=== PATIENT | female | born 1985 | race Caucasian/White ===

== ENCOUNTER 2019-06-06 17:43 | Inpatient (IN) | payer MEDICAID, SELFPAY ==
[2019-06-06 17:49] VITALS: BMI 48.5
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
[2019-06-06 19:26] LABS: Basophils % 0.3 %; Eosinophils % 0.1 %; Hematocrit 35.4 % (37.0-47.0); Hemoglobin 11.8 g/dL (11.5-15.3); Lymphocytes # 4.7 10^3/uL (0.8-4.8); Lymphocytes % 48.1 %; Mean Corpuscular HGB Conc 33.3 g/dL (30.0-36.0); Mean Corpuscular Volume 90.1 fL (81-99); Monocytes # 0.7 10^3/uL (0.2-0.9); Monocytes % 7.2 %; Neutrophils # 4.2 10^3/uL (1.8-7.7); Nucleated Red Blood Cells % 0 %; Platelet Count 268 10^3/cmm (130-400); Red Blood Count 3.93 10^6/uL (4.1-5.3); Red Cell Distribution Width 11.9 % (12.1-15.1); White Blood Count 9.7 10^3/uL (4.0-10.0)
[2019-06-06 19:40] LABS: Alanine Aminotransferase 7 U/L (0-33); Albumin Level 2.9 g/dL (3.5-5.2); Alkaline Phosphatase 44 IU/L (35-105); Anion Gap 16.4 (5-19); Aspartate Amino Transferase 9 U/L (0-32); Blood Urea Nitrogen 12 mg/dL (6-20); Calcium 9.4 mg/dL (8.5-10.5); Carbon Dioxide 25 mmol/L (22-29); Chloride 96 mmol/L (98-107); Globulin 3.7 g/dL (1.3-4.6); Glomerular Filtration Rate 72.6 mL/min (90-130); Glucose 119 mg/dL (74-109); Potassium 3.4 mmol/L (3.5-5.1); Sodium 134 mmol/L (136-145); Total Bilirubin 0.2 mg/dL (0.15-1.2); Total Protein 6.6 g/dL (6.6-8.7)
[2019-06-06 19:50] LABS: Acetaminophen < 5.0 ug/mL (10-30); Alcohol Level < 10 mg/dL (0-10); Salicylate < 0.3 mg/dL (3-10)
[2019-06-06 19:50] LABS: Add Urine Microscopic? NO
[2019-06-06 19:57] VITALS: BP 128/85; PULSE 100; RESP 18; TEMP 36.7; O2SAT 97
[2019-06-06 20:12] LABS: Blood Urine Neg (Negative); Glucose Urine UA Norm (Normal); HCG Qualitative Urine. Negative (Negative); Ketones Urine Negative (Negative); Protein Urine Neg (Negative); Urine Appearance Clear (CLEAR); Urine Color Yellow (Yellow); pH Urine 6 (5-7)
[2019-06-06 20:13] LABS: Bilirubin Urine Neg (NEGATIVE); Leukocyte Esterase Urine Negative (Negative); Nitrate Urine Negative (Negative); Urobilinogen Urine Norm (Negative)
[2019-06-06 20:24] LABS: Amphetamines Screen Urine Negative (Negative); Barbiturates Screen Urine Negative (Negative); Benzodiazepines Screen Urine Negative (Negative); Cocaine Screen Urine Negative (Negative); Opiate Screen Urine Negative (Negative); PCP Screen Urine Negative (Negative); THC Screen Urine Negative (Negative)
[2019-06-06 21:46] VITALS: BP 128/85; PULSE 100; RESP 18; TEMP 36.7; O2SAT 97
[2019-06-06 22:19] VITALS: BP 119/85; PULSE 105; RESP 22; TEMP 37.3; O2SAT 98
[2019-06-06] MEDS: trazodone 50 mg Tablet PO (22:31)
[2019-06-07 06:00] VITALS: BP 120/76; PULSE 82; RESP 20; TEMP 36.4; O2SAT 97
[2019-06-07 13:33] VITALS: BP 96/66; PULSE 88; RESP 20; TEMP 36.8; O2SAT 97
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
[2019-06-07 20:28] VITALS: BP 115/52; PULSE 68; RESP 19; TEMP 36.8; O2SAT 97
[2019-06-07] MEDS: trazodone 50 mg Tablet PO (20:31)
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
[2019-06-08 06:00] VITALS: BP 102/58; PULSE 92; RESP 19; TEMP 36.8; O2SAT 95
[2019-06-08 14:00] VITALS: RESP 18
--- NOTE | 2019-06-08 14:24 | PC.SOCIAL ---
message has been left in regards to talking to nurse Beckie Elizalde [phone] contact for [facility]
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
[2019-06-08 16:38] VITALS: BP 102/58; PULSE 92; RESP 18; TEMP 36.8; O2SAT 95
== END 2019-06-08 16:57 | disposition home or self-care (01) | DRG 883 ==
LOC: ER 21:11 → NP 06-07 11:32
PROVIDERS: Emergency Provider Family Medicine; Family Provider Family Medicine; PCP Family Medicine; Visit Provider Psychiatry & Neurology Psychiatry
DX: F63.81 Intermittent explosive disorder (principal); R45.851 Suicidal ideations; F79 Unspecified intellectual disabilities
CPT/HCPCS: 12345; 36415; 80053; 80307; 81003; 81025; 85025; 99284; A9270

== ENCOUNTER 2019-06-06 17:43 | Emergency (ER) | payer MEDICAID, SELFPAY | END 2019-06-06 22:00 | disposition admitted as inpatient to this hospital (09) | LOC: ER 06-28 07:08 | PROVIDERS: Emergency Provider Family Medicine; Family Provider Family Medicine; PCP Family Medicine | DX: F31.9 Bipolar disorder, unspecified (principal) | CPT/HCPCS: 36415; 80053; 80307; 81003; 81025; 85025; 99284; 99285 ==

== ENCOUNTER → 2019-07-13 07:40 | Outpatient (BNVA) | payer MEDICAID, SELFPAY | PROVIDERS: Family Provider Family Medicine; PCP Family Medicine; Visit Provider Nurse Practitioner | DX: F31.81 Bipolar II disorder (principal); F70 Mild intellectual disabilities | CPT/HCPCS: 99213 ==

== ENCOUNTER 2019-07-31 05:45 | Outpatient (CLI) | payer MEDICAID, SELFPAY ==
[2019-07-31 06:13] VITALS: BMI 47.6
--- NOTE | 2019-07-31 06:23 | ECG_ITS ---
NAME OF STUDY: LEXISCAN SESTAMIBI STRESS TEST INDICATION: Abnormal EKG PROCEDURE: At the baseline, the EKG revealed normal sinus rhythm with diffuse nonspecific T wave changes in the anterolateral leads. The baseline blood pressure was 117/71 mm Hg with a heart rate of 74 beats/min. Lexiscan was infused over a period of 20 seconds. A total of 0.4 milligrams of Lexiscan was infused. The stress phase was continued for a total of 5 minutes. Heart rate at the end of the stress phase was 86 with a blood pressure 130/59. The EKG at the peak infusion revealed no significant changes. Sestamibi was injected 20 seconds after the Lexiscan infusion. Blood pressure at the end of the recovery phase was 130/59 with a heart rate of 86 per minute. CONCLUSION: 1. No significant EKG changes with the LexiScan infusion 2. No LexiScan induced chest pain or cardiac arrhythmia 3. Normal blood pressure and heart rate response 4. Sestamibi/sestamibi perfusion scan pending; see separate report. Electronically Signed On 08-15-2019 12:40:35 CDT by Lilli Cardona M.D. [id number]
--- NOTE | 2019-07-31 06:23 | NMCV_ITS ---
NM trena perf SPECT r/s* [id number] Ericka Allen Age: 33 Gender: F : 1985 Exam Date: 07/31/2019 07:47 Ordering Phys: Lilli Cardona MD ([email or web address]) Technologist: XIOMY Sal Exam Location: [facility] Indications: ABNORMAL EKG STRESS TEST Please [facility] for [facility] IMAGE PROTOCOL Rest/Stress 1 Lexiscan Day Radiopharmaceutical Dose (mCi) Administration Site Administered by Rest: Tc-99m 10.7 IV XIOMY Jacinto Sestamibi Stress:Tc-99m 33.0 IV XIOMY Sal Sestamiveronica Rest: 31-Jul-2019 60 Discovery 630 Stress: 31-Jul-2019 30 Discovery 630 0.4mg Lexiscan. Images obtained in supine and prone position. SPECT RESULTS Technical Quality: Excellent Raw Data Analysis: Breast attenuation Image Corrections: No attenuation or motion correction applied Summed Stress Score: 0 Summed Rest Score: 0 Summed Difference Score: 0 PERFUSION FINDINGS Fairly uniform myocardial tracer uptake. No significant perfusion normalities were noted. FUNCTIONAL RESULTS (calculated via Gated SPECT) Stress Image LV EF (%): 69 Stress EDV (mL):102 TID: 1.13 Stress ESV (mL):32 FUNCTIONAL FINDINGS: Segmental wall motion analysis revealed no gross wall motion abnormalities IMPRESSIONS 1. Unremarkable myocardial perfusion imaging. 2. Normal LV ejection fraction of 69%. 3. LV wall motion analysis revealing no gross wall motion normalities. 4. Normal LV volume. No significant coronary ischemia, based on the above findings. No similar previous studies are available for comparison Dr Lilli Cardona MD FACC (Electronically Signed) Final Date: 31 July 2019 18:40 S
--- NOTE | 2019-07-31 06:42 | SUR.PREOP ---
PRE OP NOTE/ HCG SCREENING Serum HCG sent to lab. Awaiting results.
--- NOTE | 2019-07-31 06:55 | SUR.PREOP ---
HCG RESULT Negative result. Proceeding with nuclear injection.
[2019-07-31 07:00] LABS: HCG Qualitative Urine. Negative (Negative)
--- NOTE | 2019-07-31 08:26 | SUR.PREOP ---
Patient reports no pain or discomfort prior to the start of the procedure.
--- NOTE | 2019-07-31 08:40 | SUR.PREOP ---
INTRASTRESS NOTE Patient unable to walk on the treadmill. Dr Cardona notified. States he will be up to assess the patient and give further orders. Patient aware. No new needs at this time.
[2019-07-31] MEDS: regadenoson 0.4 Mg/5 ml Syringe IVP (09:34)
[2019-07-31 09:55] VITALS: BP 130/59; PULSE 80
== END 2019-07-31 05:46 | disposition home or self-care (01) ==
PROVIDERS: Family Provider Family Medicine; PCP Family Medicine; Visit Provider Internal Medicine Cardiovascular Disease
DX: R94.31 Abnormal electrocardiogram [ECG] [EKG] (principal); R06.02 Shortness of breath
CPT/HCPCS: 78452; 81025; 93017; A9500; J2785

== ENCOUNTER → 2019-10-05 07:38 | Outpatient (BNVA) | payer MEDICAID, SELFPAY | PROVIDERS: Family Provider Family Medicine; PCP Family Medicine; Visit Provider Nurse Practitioner | DX: F70 Mild intellectual disabilities (principal); F31.81 Bipolar II disorder | CPT/HCPCS: 99213 ==

== ENCOUNTER → 2019-12-25 08:07 | Outpatient (BNVA) | payer MEDICAID, SELFPAY | PROVIDERS: Family Provider Family Medicine; PCP Family Medicine; Visit Provider Nurse Practitioner | DX: F31.81 Bipolar II disorder (principal); F70 Mild intellectual disabilities | CPT/HCPCS: 99214 ==

== ENCOUNTER → 2020-01-30 07:50 | Outpatient (BNVA) | payer MEDICAID, SELFPAY | PROVIDERS: Family Provider Family Medicine; PCP Family Medicine; Visit Provider Nurse Practitioner | DX: F70 Mild intellectual disabilities (principal); F31.81 Bipolar II disorder | CPT/HCPCS: 99214 ==

== ENCOUNTER → 2020-02-27 08:08 | Outpatient (BNVA) | payer MEDICAID, SELFPAY | PROVIDERS: Family Provider Family Medicine; PCP Family Medicine; Visit Provider Nurse Practitioner | DX: F70 Mild intellectual disabilities (principal); F31.81 Bipolar II disorder | CPT/HCPCS: 99214 ==

== ENCOUNTER → 2020-04-15 07:51 | Outpatient (BNVA) | payer MEDICAID, SELFPAY | PROVIDERS: Family Provider Family Medicine; PCP Family Medicine; Visit Provider Nurse Practitioner | DX: F70 Mild intellectual disabilities (principal); F31.81 Bipolar II disorder | CPT/HCPCS: 99213 ==

== ENCOUNTER → 2020-07-09 07:58 | Outpatient (BNVA) | payer MEDICAID, SELFPAY | PROVIDERS: PCP Family Medicine; Visit Provider Nurse Practitioner | DX: F31.81 Bipolar II disorder (principal); F70 Mild intellectual disabilities | CPT/HCPCS: 99214 ==

== ENCOUNTER → 2020-07-24 10:07 | Outpatient (BNVA) | payer MEDICAID, SELFPAY | PROVIDERS: PCP Family Medicine; Visit Provider Anesthesiology Pain Medicine | DX: M25.561 Pain in right knee (principal); M25.562 Pain in left knee | CPT/HCPCS: 99204 ==

== ENCOUNTER → 2020-10-01 13:09 | Outpatient (BNVA) | payer MEDICAID, SELFPAY | PROVIDERS: PCP Family Medicine; Visit Provider Nurse Practitioner | DX: F31.81 Bipolar II disorder (principal); F70 Mild intellectual disabilities | CPT/HCPCS: 99214 ==

== ENCOUNTER → 2020-10-15 14:32 | Outpatient (BNVA) | payer MEDICAID, SELFPAY | PROVIDERS: PCP Family Medicine; Visit Provider Nurse Practitioner | DX: F31.81 Bipolar II disorder (principal); F70 Mild intellectual disabilities | CPT/HCPCS: 99214 ==

== ENCOUNTER → 2020-12-23 07:36 | Outpatient (BNVA) | payer MEDICAID, SELFPAY | PROVIDERS: PCP Family Medicine; Visit Provider Nurse Practitioner | DX: F70 Mild intellectual disabilities (principal); F31.81 Bipolar II disorder | CPT/HCPCS: 99214 ==

== ENCOUNTER → 2021-02-03 07:15 | Outpatient (BNVA) | payer MEDICAID, SELFPAY | PROVIDERS: PCP Family Medicine; Visit Provider Nurse Practitioner | DX: F70 Mild intellectual disabilities (principal); F31.81 Bipolar II disorder | CPT/HCPCS: 99214 ==

== ENCOUNTER → 2021-03-26 11:08 | Outpatient (BNVA) | payer MEDICAID, SELFPAY | PROVIDERS: PCP Family Medicine; Visit Provider Nurse Practitioner | DX: F31.70 Bipolar disorder, currently in remission, most recent episode unspecified (principal); F70 Mild intellectual disabilities | CPT/HCPCS: 99214 ==

== ENCOUNTER → 2021-06-18 08:29 | Outpatient (BNVA) | payer MEDICAID, SELFPAY | PROVIDERS: PCP Family Medicine; Visit Provider Nurse Practitioner | DX: F41.1 Generalized anxiety disorder (principal); F70 Mild intellectual disabilities; F31.81 Bipolar II disorder | CPT/HCPCS: 99214 ==

== ENCOUNTER → 2021-07-14 13:57 | Outpatient (BNVA) | payer MEDICAID, SELFPAY | PROVIDERS: PCP Family Medicine; Visit Provider Nurse Practitioner | DX: F70 Mild intellectual disabilities (principal); F31.81 Bipolar II disorder | CPT/HCPCS: 99214 ==

== ENCOUNTER → 2021-08-11 11:49 | Outpatient (BNVA) | payer MEDICAID, SELFPAY | PROVIDERS: PCP Family Medicine; Visit Provider Nurse Practitioner | DX: F31.70 Bipolar disorder, currently in remission, most recent episode unspecified (principal); F41.1 Generalized anxiety disorder; F31.81 Bipolar II disorder; F70 Mild intellectual disabilities; Z79.899 Other long term (current) drug therapy | CPT/HCPCS: 99214 ==

== ENCOUNTER → 2021-12-24 08:10 | Outpatient (BNVA) | payer MEDICAID, SELFPAY | PROVIDERS: PCP Family Medicine; Visit Provider Nurse Practitioner | DX: Z79.899 Other long term (current) drug therapy (principal) | CPT/HCPCS: 80061; 83036 ==

== ENCOUNTER → 2022-06-14 11:56 | Outpatient (BNVA) | payer MEDICAID, SELFPAY | PROVIDERS: PCP Family Medicine; Visit Provider Psychiatry & Neurology Psychiatry | DX: F31.70 Bipolar disorder, currently in remission, most recent episode unspecified (principal); F41.1 Generalized anxiety disorder; Z79.899 Other long term (current) drug therapy; F31.81 Bipolar II disorder; F17.210 Nicotine dependence, cigarettes, uncomplicated; F70 Mild intellectual disabilities | CPT/HCPCS: 80053; 84443 ==

== ENCOUNTER 2022-09-20 20:00 | Outpatient (CLI) | payer MEDICAID, SELFPAY | END 2022-09-20 20:01 | disposition home or self-care (01) | LOC: SLEEP 09-21 04:51 | PROVIDERS: PCP Family Medicine; Visit Provider Family Medicine | DX: G47.33 Obstructive sleep apnea (adult) (pediatric) (principal); R09.02 Hypoxemia | CPT/HCPCS: 95810 ==

== ENCOUNTER 2023-05-17 08:29 | Observation (INO) | payer MEDICAID, SELFPAY ==
[2023-05-17] VITALS (11 sets, daily range): BP systolic 123–152; BP diastolic 77–102; PULSE 102–134; RESP 18–22; TEMP 36.5–37.3; O2SAT 88–94; BMI 61.9
--- NOTE | 2023-05-17 08:44 | XR_ITS ---
WS: [id number] PORTABLE CHEST HISTORY: dyspnea/cough COMPARISON: 12/12/2016 Decreased lung volumes due to poor inspiration. Normal vascularity. No pneumonia. No pleural effusion or pneumothorax. Cardiac size: Normal. Mediastinum/Aorta: Normal mediastinum. No osseous abnormality seen. IMPRESSION: Unremarkable portable chest.
--- NOTE | 2023-05-17 08:44 | ECG_ITS ---
[facility] Test Date: 2023-05-17 Pat Name: Ericka Allen Department: Room: Gender: Female Youth Specialist: : 1985 Requested By: Edmar Navarro Order Number: [id number] Chito MD: Lilli Cardona M.D. Measurements Intervals [place] Rate: 120 P: 43 MD: 136 QRS: -18 QRSD: 105 T: 53 QT: 329 QTc: 465 Interpretive Statements SINUS TACHYCARDIA POSSIBLE ANTERIOR MYOCARDIAL INFARCTION , PROBABLY OLD [30 ms Q WAVE IN V3/V4, OR R < 0.2 mV IN V4] ABNORMAL RHYTHM ECG Compared to ECG 01/22/2019 17:10:15 Myocardial infarct finding now present Indeterminate axis no longer present Electronically Signed On 05-17-2023 21:37:55 BURRER MACHINE by Lilli Cardona M.D. [id number]
[2023-05-17] MEDS: dexamethasone 10 mg/mL INJ IM (08:54)
--- NOTE | 2023-05-17 09:02 | ED_ITS ---
HPI - COVID 2 General: Chief Complaint: COVID symptoms Stated Complaint: sob, cough Time Seen by Provider: 05/17/23 08:43 Source: patient Mode of arrival: ambulatory Triage information: Has fever, cough or shortness of breath . History of Present Illness: 37-year-old female lives in an independe supervised living. She has cough cold congestion symptoms along with fever and diarrhea that began yesterday. No hemoptysis. She is not normally on oxygen she is morbidly obese and wears CPAP but does not compliant with her CPAP. This morning when she is emergency room she is requiring several liters of oxygen to maintain her sats in the low 90s. She does have a history of hypertension no history of any chronic respiratory disease. She is not diabetic. MD complaint: has COVID symptoms COVID 19 common symptoms: positive fever(s), chills, cough, non-productive cough, dyspnea, fatigue, body aches, throat pain, nasal congestion, vomiting and diarrhea COVID 19 other sytmptoms: negative chest pain Onset (ago): day(s) (1) Severity: moderate Pertinent comorbid conditions: hypertension, obesity, on home bipap/cpap and other (Cognitive disability) Treatment prior to arrival: none COVID Results: 2 SARS-CoV-2 (PCR) Not detected (NOT DETECT) 05/17/23 09:18 Coronavirus Type 229E (PCR) Not detected (NOT DETECT) 05/17/23 09:18 Review of Systems 2 Const: Reports: fever(s), chills, body aches and fatigue ENMT: Reports: throat pain and nasal congestion Card: Denies: chest pain Resp: Reports: dyspnea and non-productive cough GI: Reports: vomiting and diarrhea : Denies: dysuria, urinary frequency or urinary urgency Musc: Denies: neck pain or back pain Skin/Breast: Denies: rash PFSH ED 2 PFSH: Medical History Nicotine dependence, cigarettes, uncomplicated On combination antipsychotic drug therapy Generalized anxiety disorder Psychiatric care Learning disability Mild intellectual disabilities Bipolar II disorder SOB (shortness of breath) on exertion High blood cholesterol Sleep apnea Abnormal EKG Intermittent explosive disorder Family History Other Diabetes Lung disease Stroke Social History Smoking and tobacco/nicotine status: current some day tobacco/nicotine user cigarettes Packs smoked per day: 0.5 Years cigarettes smoked: 3 Quit status (tobacco/nicotine): not considering quitting Second hand smoke exposure: No Alcohol intake: never Substance/Drug Use: never Physical Exam 2 Const: COMMON NORMALS: no acute distress GENERAL APPEARANCE: cooperative and comfortable ORIENTATION/CONSCIOUSNESS: Yes awake, Yes oriented to person, Yes oriented to place and Yes oriented to time HENMT: COMMON NORMALS: normocephalic, atraumatic and hearing grossly normal bilaterally; nasal mucous membranes&turbinates abnorm HEAD & SCALP: normocephalic and atraumatic NOSE: nasal mucous membranes&turbinates abnorm Resp: COMMON NORMALS: normal respiratory effort, No retractions and No use of accessory muscles AUSCULTATION: wheezes Cardio: COMMON NORMALS: regular rate, regular rhythm and No murmurs present (Cardio) RATE: regular rate RHYTHM: regular rhythm GI: COMMON NORMALS: Soft to palpation and No hepatosplenomegaly present A USCULTATION: Yes normoactive bowel sounds PALPATION: Yes Soft to palpation, No Tenderness to palpation present (GI), No Guarding due to palpation present (GI) and Yes No hepatosplenomegaly present Extremity: COMMON NORMALS: normal to inspection, capillary refill normal, no clubbing, cyanosis or edema, no calf tenderness and no pedal edema Neuro: SENSORIUM/ORIENTATION: Yes oriented to person, Yes oriented to place and Yes oriented to time Skin: COMMON NORMALS: no rashes or lesions noted GENERAL SKIN EXAM: no rashes or lesions noted Course 2 Vital Signs: Vital signs: Vital Signs Temperature 99.1 F 05/17/23 08:39 Pulse Rate 134 H 05/17/23 08:39 Respiratory Rate 22 H 05/17/23 08:39 Blood Pressure 152/102 05/17/23 08:39 Pulse Oximetry 93 05/17/23 09:18 Oxygen Delivery Me thod Nasal Cannula 05/17/23 09:18 Oxygen Flow Rate 2 05/17/23 09:18 MDM - COVID Medical Decision Making COVID is negative, influenza A is positive. Patient is hypoxic will require inpatient care discussed with hospitalist orders written. Medical Records I reviewed the patient's medical records. Lab Data I reviewed the patient's lab results. 05/17/23 09:07 05/17/23 09:07 Laboratory Results WBC 9.01 10^3/uL (3.29-11.43) 05/17/23 09:07 RBC 4.77 10^6/uL (3.85-5.65) 05/17/23 09:07 Hgb 13.90 g/dL (11.27-16.99) 05/17/23 09:07 Hct 42.6 % (36-47) 05/17/23 09:07 MCV 89.3 fl (85-98) 05/17/23 09:07 MCH 29.1 pg (27-33) 05/17/23 09:07 MCHC 32.6 g/dL (30-55) 05/17/23 09:07 RDW 13.5 % (12.1-15.1) 05/17/23 09:07 Plt Count 370 10^3/cmm (157-399) 05/17/23 09:07 MPV 8.9 fL (7.4-10.4) 05/17/23 09:07 Neut % (Auto) 84.4 % 05/17/23 09:07 Lymph % (Auto) 6.0 % 05/17/23 09:07 [place] % (Auto) 8.4 % 05/17/23 09:07 Eos % (Auto) 0.1 % 05/17/23 09:07 Baso % (Auto) 0.4 % 05/17/23 09:07 Neut # (Auto) 7.60 10^3/uL (1.8-7.7) 05/17/23 09:07 Lymph # (Auto) 0.5 10^3/uL (0.8-4.8) L 05/17/23 09:07 [place] # (Auto) 0.8 10^3/uL (0.2-0.9) 05/17/23 09:07 Eos # (Auto) 0.0 10^3/uL (0.0-0.8) 05/17/23 09:07 Baso # (Auto) 0.0 10^3/uL (0.0-0.1) 05/17/23 09:07 Nucleated RBC % (auto) 0 % 05/17/23 09:07 Nucleated RBCs # 0.0 /100WBC 05/17/23 09:07 Specimen Type Arterial 05/17/23 09:12 Sample Site Brachial, right 05/17/23 09:12 ABG pH 7.45 (7.35-7.45) 05/17/23 09:12 ABG pCO2 38.0 mmHg (35-45) 05/17/23 09:12 ABG pO2 64.8 mmHg (80.0-100.0) L 05/17/23 09:12 ABG PO2/FiO2 Ratio 0 05/17/23 09:12 ABG HCO3 26.3 mmol/L (22-26) H 05/17/23 09:12 ABG O2 Saturation 93.0 05/17/23 09:12 ABG Base Excess 2.3 mmol/L (-2.0-2.0) H 05/17/23 09:12 Walker Test N/a 05/17/23 09:12 A-a O2 Gradient 10.6 mmHg (5-10) H 05/17/23 09:12 Hematocrit 43.7 % (37-47) 05/17/23 09:12 Hgb O2 Saturation 91.2 % (95-100) L 05/17/23 09:12 Carboxyhemoglobin 1.6 %THgb (0.4-20.1) 05/17/23 09:12 Methemoglobin 0.2 % (0.4-1.5) L 05/17/23 09:12 Total Hemoglobin 14.2 g/dL (12-16) 05/17/23 09:12 Sodium 133.0 mmol/L (131-143) 05/17/23 09:12 Potassium 3.8 mmol/L (3.5-5.0) 05/17/23 09:12 Glucose 110.0 mg/dL (70-115) 05/17/23 09:12 Ionized Calcium 1.2 mmol/L (1.1-1.4) 05/17/23 09:12 O2 Delivery Device Nc 05/17/23 09:12 O2 Liters/Min 2.0 % 05/17/23 09:12 FiO2 28.0 % 05/17/23 09:12 Clinical Cytogenetics Director ID [facility] 05/17/23 09:12 Sodium 133 mmol/L (136-145) L 05/17/23 09:07 Potassium 4.2 mmol/L (3.5-5.1) 05/17/23 09:07 Chloride 96 mmol/L (98-107) L 05/17/23 09:07 Carbon Dioxide 24 mmol/L (22-29) 05/17/23 09:07 Anion Gap 17.2 (5-19) 05/17/23 09:07 BUN 11 mg/dL (6-20) 05/17/23 09:07 Creatinine 0.7 mg/dL (0.5-0.9) 05/17/23 09:07 GFR Calculation 94.7 mL/min (90-130) 05/17/23 09:07 Glucose 109 mg/dL (65-115) 05/17/23 09:07 Calculated Osmolality 276 mOsm/kg (285-295) L 05/17/23 09:07 Calcium 9.9 mg/dL (8.5-10.5) 05/17/23 09:07 Total Bilirubin 0.2 mg/dL (0.15-1.2) 05/17/23 09:07 AST 14 U/L (0-32) 05/17/23 09:07 ALT 17 U/L (0-33) 05/17/23 09:07 Alkaline Phosphatase 88 U/L (35-105) 05/17/23 09:07 Total Protein 7.2 g/dL (6.6-8.7) 05/17/23 09:07 Albumin 3.7 g/dL (3.5-5.2) 05/17/23 09:07 Globulin 3.5 g/dL (1.3-4.6) 05/17/23 09:07 Coronavirus 229E (PCR) Not detected (NOT DETECT) 05/17/23 09:18 Influenza A (H1) PCR Not detected (NOT DETECT) 05/17/23 11:19 Influ A (H1/09) PCR Detected (NOT DETECT) A 05/17/23 11:19 Influenza A (H3) PCR Not detected (NOT DETECT) 05/17/23 11:19 Influenza Type A Ag positive (Negative) H 05/17/23 08:55 Influenza Type A (PCR) Detected (NOT DETECT) A 05/17/23 11:19 Influenza Type B Ag negative (Negative) 05/17/23 08:55 Influenza Type B (PCR) Not detected (NOT DETECT) 05/17/23 11:19 SARS-CoV-2 (PCR) Not detected (NOT DETECT) 05/17/23 09:18 2 SARS-CoV-2 (PCR) Not detected (NOT DETECT) 05/17/23 09:18 Coronavirus Type 229E (PCR) Not detected (NOT DETECT) 05/17/23 09:18 All radiology interpretation(s) finalized by discharge Discharge Plan Discharge Patient Disposition: Placed in Observation Admit Provider: Chandu Salas Clinical Impression: Influenza A, Sleep apnea, Hypoxia Condition: Stable Coding Level of Care Code ED President & Founder for [employer]
[2023-05-17 09:20] LABS: Basophils % 0.4 %; Eosinophils % 0.1 %; Hematocrit 42.6 % (36-47); Lymphocytes # 0.5 10^3/uL (0.8-4.8); Mean Corpuscular HGB Conc 32.6 g/dL (30-55); Mean Corpuscular Hemoglobin 29.1 pg (27-33); Mean Corpuscular Volume 89.3 fl (85-98); Mean Platelet Volume 8.9 fL (7.4-10.4); Monocytes # 0.8 10^3/uL (0.2-0.9); Monocytes % 8.4 %; Neutrophils % 84.4 %; Nucleated Red Blood Cells % 0 %; Platelet Count 370 10^3/cmm (157-399); Red Blood Count 4.77 10^6/uL (3.85-5.65); Red Cell Distribution Width 13.5 % (12.1-15.1); White Blood Count 9.01 10^3/uL (3.29-11.43)
[2023-05-17 09:23] LABS: Influenza A by IFA positive (Negative); Influenza B by IFA negative (Negative)
[2023-05-17 09:23] LABS: ABG PH Result 7.45 (7.35-7.45); Alveolar-Arterial Oxygen Gradi 10.6 mmHg (5-10); Arterial Blood Gas Hematocrit 43.7 % (37-47); Base Excess ABG 2.3 mmol/L (-2.0-2.0); Blood Gas Operator Identificat AMH; Blood Gas Sample Site Brachial, right; Blood Gas Sample Type Arterial; Carboxyhemoglobin 1.6 %THgb (0.4-20.1); HCO3 ABG 26.3 mmol/L (22-26); HGB O2 Sat 91.2 % (95-100); Ionized Calcium Level - ABG 1.2 mmol/L (1.1-1.4); Methemoglobin 0.2 % (0.4-1.5); Oxygen Device NC; PO2 ABG 64.8 mmHg (80.0-100.0); PO2 FiO2 Ratio Arterial Blood 0; Potassium Level - ABG 3.8 mmol/L (3.5-5.0); Total Hemoglobin 14.2 g/dL (12-16)
[2023-05-17 09:41] LABS: Alanine Aminotransferase 17 U/L (0-33); Albumin Level 3.7 g/dL (3.5-5.2); Alkaline Phosphatase 88 U/L (35-105); Anion Gap 17.2 (5-19); Aspartate Amino Transferase 14 U/L (0-32); Blood Urea Nitrogen 11 mg/dL (6-20); Calcium 9.9 mg/dL (8.5-10.5); Carbon Dioxide 24 mmol/L (22-29); Chloride 96 mmol/L (98-107); Globulin 3.5 g/dL (1.3-4.6); Glomerular Filtration Rate 94.7 mL/min (90-130); Glucose 109 mg/dL (65-115); Osmolality Calculated 276 mOsm/kg (285-295); Potassium 4.2 mmol/L (3.5-5.1); Sodium 133 mmol/L (136-145); Total Bilirubin 0.2 mg/dL (0.15-1.2); Total Protein 7.2 g/dL (6.6-8.7)
[2023-05-17 11:13] LABS: Adenovirus Not Detected (NOT DETECT); Chlamydia Pneumoniae Not Detected (NOT DETECT); Coronavirus 229E,HKU1,NL63,OC4 Not Detected (NOT DETECT); Human Metapneumovirus Not Detected (NOT DETECT); Human Rhinovirus/Enterovirus Not Detected (NOT DETECT); Influenza A Detected (NOT DETECT); Influenza A H1 Not Detected (NOT DETECT); Influenza A H1-2009 Detected (NOT DETECT); Influenza A H3 Not Detected (NOT DETECT); Influenza B Not Detected (NOT DETECT); Mycoplasma Pneumoniae Not Detected (NOT DETECT); Parainfluenza Virus Type 1 Not Detected (NOT DETECT); Parainfluenza Virus Type 2 Not Detected (NOT DETECT); Parainfluenza Virus Type 3 Not Detected (NOT DETECT); Parainfluenza Virus Type 4 Not Detected (NOT DETECT); Respiratory Syncytial Virus A Not Detected (NOT DETECT); Respiratory Syncytial Virus B Not Detected (NOT DETECT); SARS-COV-2 Not Detected (NOT DETECT)
[2023-05-17 11:20] LABS: Influenza A Detected (NOT DETECT); Influenza A H1 Not Detected (NOT DETECT); Influenza A H1-2009 Detected (NOT DETECT); Influenza A H3 Not Detected (NOT DETECT); Influenza B Not Detected (NOT DETECT); Results from Genmark
--- NOTE | 2023-05-17 11:53 | P.HP_ITS ---
Documented by User: Leno Mauricioverona 05/17/23 12:42 Providers/Chief Complaint 2 Admitting Physician: Chandu Salas MD Primary Care Provider: Jesus Bernardo MD Chief Complaint: sob, cough History of Present Illness Patient is a 37-year-old female with a past medical history of bipolar, hyperlipidemia, MYLES who presents the emergency room with cough, congestion, wheezing with increased shortness of breath. Patient currently resides at [facility] with staff present. Staff member at bedside at this time. Patient and staff member reports that patient started to have increased cough as well as shortness of breath that began last night. Patient continues to cough throughout the night with audible wheezes. When patient woke up this a.m., staff directed patient to local PCP jessenia Simon. Vital signs were obtained at clinic and patient was 88% on room air. Clinic advised patient to enter emergency room at this time. Patient denies any chest discomfort, abdominal pain, fever, diarrhea, vomiting at this time. Patient does report that she has bilateral leg pain though this is not anything new for her. Staff and patient does state that she has extensive smoking history as well as vaping and is not compliant with CPAP. Normally walks without devices independently. While in the emergency room, laboratory studies and radiology imaging were performed.Patient received Decadron IM and a DuoNeb.+ Influenza A. Patient will be admitted to the hospital for further medical management of influenza A. Review of Systems 2 Narrative: Comprehensive 10 point ROS is negative except as noted in the HPI above. Medications/Allergies Home Medications Medication Instructions Recorded Confirmed Last Taken Type Cepacol Sore Throat (bernadine-men) 1 ea PO Q2H PRN Cough 06/08/19 05/17/23 Unknown History famotidine 20 mg tablet 20 mg PO BID 06/08/19 05/17/23 05/17/23 History levothyroxine 75 mcg tablet 75 mcg PO DAILY 06/08/19 05/17/23 05/17/23 History polyethylene glycol 3350 17 gram 17 g PO DAILY PRN Constipation 06/08/19 05/17/23 Unknown History oral powder packet (Miralax) celecoxib 200 mg capsule 200 mg PO BID 07/24/20 05/17/23 05/17/23 History nystatin 100,000 unit/gram topical 1 applic topical BID PRN Rash 02/09/23 05/17/23 Unknown History powder lamotrigine 100 mg tablet 100 mg PO DAILY #30 tabs 05/03/23 05/17/23 05/17/23 Rx (Lamictal) lorazepam 0.5 mg tablet 0.25 mg (1/2 x 0.5 mg) PO BID #30 05/03/23 05/17/23 05/17/23 Rx tabs ziprasidone HCl 80 mg capsule 80 mg PO BID #60 caps 05/03/23 05/17/23 05/17/23 Rx (Geodon) albuterol sulfate 90 mcg/actuation 2 inh inhalation Q4H PRN Shortness 05/17/23 05/17/23 Unknown History aerosol inhaler (Ventolin HFA) Of Breath fluticasone propionate 50 1 spray intranasal DAILY 05/17/23 05/17/23 Unknown History mcg/actuation nasal spray,suspension melatonin 10 mg capsule 10 mg PO BEDTIME 05/17/23 05/17/23 05/16/23 History norgestimate 0.18 mg/0.215 mg/0.25 1 tab PO DAILY 05/17/23 05/17/23 05/16/23 History mg-ethinyl estradiol 25 mcg tablet (Tri-VyLibra Lo) paroxetine HCl 40 mg tablet (Paxil) 40 mg PO BEDTIME 05/17/23 05/17/23 05/16/23 History Allergies Allergy/AdvReac Type Severity Reaction Status Date / Time hydrochlorothiazide Allergy Unknown unknown Verified 02/09/23 11:23 codeine Allergy ALGY-Hives Verified 02/09/23 11:23 PFSH Acute 2 PFSH: Medical History Nicotine dependence, cigarettes, uncomplicated On combination antipsychotic drug therapy Generalized anxiety disorder Psychiatric care Learning disability Mild intellectual disabilities Bipolar II disorder SOB (shortness of breath) on exertion High blood cholesterol Sleep apnea Abnormal EKG Intermittent explosive disorder Family History Other Diabetes Lung disease Stroke Social History Smoking and tobacco/nicotine status: current some day tobacco/nicotine user cigarettes Packs smoked per day: 0.5 Years cigarettes smoked: 3 Quit status (tobacco/nicotine): not considering quitting Second hand smoke exposure: No Alcohol intake: never Substance/Drug Use: never Vitals/I&O/Wt Last Vital Signs Temp 99.1 F 05/17/23 08:39 Pulse 134 H 05/17/23 08:39 Resp 22 H 05/17/23 08:39 BP 152/102 05/17/23 08:39 Pulse Ox 93 05/17/23 09:18 O2 Del Method Nasal Cannula 05/17/23 09:18 O2 Flow Rate 2 05/17/23 09:18 Physical Exam 2 Narrative: General: Alert, able to answer questions appropriately, tachypneic, morbidly obese HEENT: Head normocephalic, dry mucous membranes, throat without erythremia Neck: Supple Lymph: No lymphadenopathy noted Chest: Normal to inspection, even rise Respiratory: Audible wheezes, diminished breath sounds with expiratory wheeze, 2L/NC Cardio: Pulses 1+ radial and dorsalis pedis, edema present, diminished heart tones, no murmur GI: Active bowel sounds throughout deferred Neuro: Cognitive delay but answers questions appropriately, alert and oriented x 4 Skin: No obvious open wound Data 05/17/23 09:07 05/17/23 09:07 Other Labs: Influenza type a +, ABG Interpretation 1: 05/17/23 09:12 ABG pH 7.45 ABG pCO2 38.0 ABG pO2 64.8 L ABG HCO3 26.3 H ABG O2 Saturation 93.0 ABG Base Excess 2.3 H My Interpretation: Hypoxic due to influenza A and smoking history extensive. A&P Assessment and plan (1) Influenza A: Confirmed positive while emergency room. Patient is 88% on room air at [facility]. Patient is requiring 2L/NC at this time and maintaining >90% SpO2. DuoNebs Ozeltamivir 75mg BID for 5 days. Oxygen therapy per protocol (2) Bipolar disorder: Resume home medications Qualifiers: Active/Remission status: in remission of unspecified degree Qualified Code(s): F31.70 - Bipolar disorder, currently in remission, most recent episode unspecified (3) Hypothyroidism: Resume home levothyroxine. (4) Nicotine addiction: Patient reports that she smokes cigarettes and vapes. History of MYLES. Refuses to use CPAP. Cessation discussed. Nicotine patch will be provided (5) COPD exacerbation: Plan Plan as stated above. Will place patient on Tamiflu and DuoNebs. Maintain oxygen saturation greater than 90% per oxygen therapy protocol. We will resume home medications. Cessation of nicotine discussed. CODE STATUS: Full code in the event patient is unable to make decisions for self, guardian mother, will make decisions for her. Coding Level of Care Code 21469 Diagnoses Influenza A J10.1 Bipolar affective disorder in remission F31.70 Active/Remission status: in remission of unspecified degree Hypothyroidism E03.9 Nicotine addiction F17.200 COPD exacerbation J44.1 Time Spent (min) 53 Documented by User: Chandu Salas MD 05/17/23 13:12 Providers/Chief Complaint 2 Chief Complaint: sob, cough History of Present Illness Patient is a 37-year-old female with a past medical history of bipolar, hyperlipidemia, MYLES who presents the emergency room with cough, congestion, wheezing with increased shortness of breath. Patient currently resides at [facility] with staff present. Staff member at bedside at this time. Patient and staff member reports that patient started to have increased cough as well as shortness of breath that began last night. Patient continues to cough throughout the night with audible wheezes. When patient woke up this a.m., staff directed patient to local PCP advertent [facility]. Vital signs were obtained at clinic and patient was 88% on room air. Clinic advised patient to enter emergency room at this time. Patient denies any chest discomfort, abdominal pain, fever, diarrhea, vomiting at this time. Patient does report that she has bilateral leg pain though this is not anything new for her. Staff and patient does state that she has extensive smoking history as well as vaping and is not compliant with CPAP. Normally walks without devices independently. The caregiver at the [facility], reports that she often wheezes when she exerts herself and she has an albuterol inhaler she uses as needed. She has not been formally diagnosed with COPD or asthma. She has been diagnosed with sleep apnea for which she refuses to use a mask. While in the emergency room, laboratory studies and radiology imaging were performed.Patient received Decadron IM and a DuoNeb.+ Influenza A. Patient will be admitted to the hospital for further medical management of influenza A. Review of Systems 2 Card: Denies: chest pain Resp: Denies: dyspnea GI: Denies: abdominal pain, nausea or vomiting Medications/Allergies Home Medications Medication Instructions Recorded Confirmed Last Taken Type Cepacol Sore Throat (bernadine-men) 1 ea PO Q2H PRN Cough 06/08/19 05/17/23 Unknown History famotidine 20 mg tablet 20 mg PO BID 06/08/19 05/17/23 05/17/23 History levothyroxine 75 mcg tablet 75 mcg PO DAILY 06/08/19 05/17/23 05/17/23 History polyethylene glycol 3350 17 gram 17 g PO DAILY PRN Constipation 06/08/19 05/17/23 Unknown History oral powder packet (Miralax) celecoxib 200 mg capsule 200 mg PO BID 07/24/20 05/17/23 05/17/23 History nystatin 100,000 unit/gram topical 1 applic topical BID PRN Rash 02/09/23 05/17/23 Unknown History powder lamotrigine 100 mg tablet 100 mg PO DAILY #30 tabs 05/03/23 05/17/23 05/17/23 Rx (Lamictal) lorazepam 0.5 mg tablet 0.25 mg (1/2 x 0.5 mg) PO BID #30 05/03/23 05/17/23 05/17/23 Rx tabs ziprasidone HCl 80 mg capsule 80 mg PO BID #60 caps 05/03/23 05/17/23 05/17/23 Rx (Geodon) albuterol sulfate 90 mcg/actuation 2 inh inhalation Q4H PRN Shortness 05/17/23 05/17/23 Unknown History aerosol inhaler (Ventolin HFA) Of Breath fluticasone propionate 50 1 spray intranasal DAILY 05/17/23 05/17/23 Unknown History mcg/actuation nasal spray,suspension melatonin 10 mg capsule 10 mg PO BEDTIME 05/17/23 05/17/23 05/16/23 History norgestimate 0.18 mg/0.215 mg/0.25 1 tab PO DAILY 05/17/23 05/17/23 05/16/23 History mg-ethinyl estradiol 25 mcg tablet (Tri-VyLibra Lo) paroxetine HCl 40 mg tablet (Paxil) 40 mg PO BEDTIME 05/17/23 05/17/23 05/16/23 History Allergies Allergy/AdvReac Type Severity Reaction Status Date / Time hydrochlorothiazide Allergy Unknown unknown Verified 02/09/23 11:23 codeine Allergy ALGY-Hives Verified 02/09/23 11:23 PFSH Acute 2 PFSH: Medical History Nicotine dependence, cigarettes, uncomplicated On combination antipsychotic drug therapy Generalized anxiety disorder Psychiatric care Learning disability Mild intellectual disabilities Bipolar II disorder SOB (shortness of breath) on exertion High blood cholesterol Sleep apnea Abnormal EKG Intermittent explosive disorder Family History Other Diabetes Lung disease Stroke Social History Smoking and tobacco/nicotine status: current some day tobacco/nicotine user cigarettes Packs smoked per day: 0.5 Years cigarettes smoked: 3 Quit status (tobacco/nicotine): not considering quitting Second hand smoke exposure: No Alcohol intake: never Substance/Drug Use: never Data 05/17/23 09:07 05/17/23 09:07 Other Labs: Influenza type a +, Chest x-ray reviewed by me demonstrates some low lung volumes, obesity, no obvious infiltrate EKG reviewed by me demonstrates sinus tachycardia, left axis deviation, poor R wave progression A&P Assessment and plan (1) Influenza A: Confirmed positive while emergency room. Patient is 88% on room air at [facility]. Patient is requiring 2L/NC at this time and maintaining >90% SpO2. DuoNebs Ozeltamivir 75mg BID for 5 days. Oxygen therapy per protocol Associated with hypoxia (2) Bipolar disorder: Qualifiers: Active/Remission status: in remission of unspecified degree Qualified Code(s): F31.70 - Bipolar disorder, currently in remission, most recent episode unspecified (3) Hypothyroidism: Resume home levothyroxine. Check TSH (4) Nicotine addiction: (5) COPD exacerbation: Patient may have COPD. She certainly has a long smoking history. She could have vaping lung injury. She most certainly has obesity hypoventilation. She received steroids in the ER Prednisone 40 mg a day DuoNeb every 4 hours, budesonide twice daily Attestations 2 Medical Necessity Statement*: Will need less than 2 midnight stay for evaluation and treatment of influenza A, with acute COPD exacerbation. Diagnoses Influenza A J10.1 Bipolar affective disorder in remission F31.70 Active/Remission status: in remission of unspecified degree Hypothyroidism E03.9 Nicotine addiction F17.200 COPD exacerbation J44.1 Time Spent (min) 53
--- NOTE | 2023-05-17 13:13 | USCV_ITS ---
Ericka Allen Age: 37 Gender: F : 1985 Exam Date: 05/17/2023 14:40 Ordering Phys: Chandu Salas MD Technologist: Tee Dobbs Exam Location: [facility] – [place] Indication: bilat edema PROCEDURES: The venous duplex Doppler examination of both lower extremities was performed in the standard fashion. The following venous structures were evaluated: common femoral vein, profunda vein, proximal portion of the greater saphenous vein, superficial femoral vein, and the popliteal vein. In addition, the posterior tibial and peroneal trunk were evaluated. FINDINGS: Normal 2-D Doppler and augmentation and compressibility throughout the lower extremity venous structures. Additional imaging through the proximal calf veins also reveals no thrombus. Limited evaluation of the greater saphenous vein is patent with no thrombus. CONCLUSIONS No evidence of right lower extremity DVT. No evidence of left lower extremity DVT. Ramses Crocker MD (Electronically Signed) Final Date: 17 May 2023 15:49 S
[2023-05-17] MEDS: enoxaparin 40 mg/0.4 mL Syringe SUBCUT (14:20)
[2023-05-17] MEDS: nicotine 21 mg Patch 1 PATCH TRANSDERMA (14:20)
[2023-05-17 14:21] LABS: Thyroid Stimulating Hormone 1.37 uIU/mL (0.27-4.20)
[2023-05-17] MEDS: ipratropium-albuterol 3 mL Neb INHALATION ×2 (15:13→19:56)
--- NOTE | 2023-05-17 16:18 | PC.NURSE ---
Caregiver stated patient is not to use bedside commode or have snacks between meals. At long term patient is on a 2000 calorie diet. Caregiver stated patient will eat 24/7 if allowed. Patient is not to use a walker. Patient is perfectly capable of walking. Patient has been trying to get the physician to allow the walker and bedside commode but patient does not need per caregiver (import/export administrator of long term).
[2023-05-17] MEDS: ziprasidone hcl 40 mg Capsule 80 MG PO (17:50)
[2023-05-17] MEDS: famotidine 20 mg Tablet PO (17:50)
[2023-05-17] MEDS: oseltamivir phosphate 75 mg Capsule PO (17:50)
[2023-05-17] MEDS: LORazepam 0.5 mg Tablet 0.25 MG PO (17:50)
[2023-05-17] MEDS: budesonide 0.5 mg/2 mL Neb INHALATION (19:56)
[2023-05-17] MEDS: PARoxetine 20 mg Tablet 40 MG PO (21:54)
[2023-05-18] VITALS (12 sets, daily range): BP systolic 139–142; BP diastolic 80–87; PULSE 85–109; RESP 15–20; TEMP 36.8–37.1; O2SAT 90–98
[2023-05-18] MEDS: ipratropium-albuterol 3 mL Neb INHALATION ×3 (00:31→08:50)
[2023-05-18 02:58] LABS: Basophils % 0.1 %; Hematocrit 41.4 % (36-47); Lymphocytes # 1.2 10^3/uL (0.8-4.8); Lymphocytes % 16.1 %; Mean Corpuscular HGB Conc 32.1 g/dL (30-55); Mean Corpuscular Hemoglobin 28.5 pg (27-33); Mean Corpuscular Volume 88.7 fl (85-98); Mean Platelet Volume 8.7 fL (7.4-10.4); Monocytes # 0.7 10^3/uL (0.2-0.9); Monocytes % 9.5 %; Neutrophils # 5.26 10^3/uL (1.8-7.7); Neutrophils % 73.9 %; Nucleated Red Blood Cells % 0 %; Platelet Count 370 10^3/cmm (157-399); Red Blood Count 4.67 10^6/uL (3.85-5.65); Red Cell Distribution Width 13.6 % (12.1-15.1); White Blood Count 7.13 10^3/uL (3.29-11.43)
[2023-05-18 03:17] LABS: Alanine Aminotransferase 17 U/L (0-33); Albumin Level 3.6 g/dL (3.5-5.2); Alkaline Phosphatase 77 U/L (35-105); Anion Gap 15.1 (5-19); Aspartate Amino Transferase 16 U/L (0-32); Blood Urea Nitrogen 15 mg/dL (6-20); Calcium 9.9 mg/dL (8.5-10.5); Carbon Dioxide 26 mmol/L (22-29); Chloride 97 mmol/L (98-107); Glomerular Filtration Rate 94.7 mL/min (90-130); Glucose 121 mg/dL (65-115); Magnesium 1.8 mg/dL (1.7-2.3); Osmolality Calculated 280 mOsm/kg (285-295); Potassium 4.1 mmol/L (3.5-5.1); Sodium 134 mmol/L (136-145); Total Bilirubin 0.2 mg/dL (0.15-1.2); Total Protein 7.6 g/dL (6.6-8.7)
[2023-05-18] MEDS: levothyroxine 75 mcg Tablet PO (08:04)
[2023-05-18] MEDS: ziprasidone hcl 40 mg Capsule 80 MG PO (08:04)
[2023-05-18] MEDS: predniSONE 20 mg Tablet 40 MG PO (08:04)
[2023-05-18] MEDS: nicotine 21 mg Patch 1 PATCH TRANSDERMA (08:04)
[2023-05-18] MEDS: LORazepam 0.5 mg Tablet 0.25 MG PO (08:05)
[2023-05-18] MEDS: famotidine 20 mg Tablet PO (08:05)
[2023-05-18] MEDS: oseltamivir phosphate 75 mg Capsule PO (08:05)
[2023-05-18] MEDS: lamoTRIgine 100 mg Tablet PO (08:05)
[2023-05-18] MEDS: budesonide 0.5 mg/2 mL Neb INHALATION (08:50)
--- NOTE | 2023-05-18 10:35 | PC.CHAP ---
Pastoral Care Encounter/Spiritual Assessment Type of Contact [] Declined oracle applications analyst visit [] Patient/Family/Request visit [] Outpatient visit [] Follow-up visit [] Physician referral [] Code/Alert [X] Routine visit [] Staff referral [] Actively dying [] Patient sleeping [] Family support [] [] Out of room [] Palliative care [] [] Receiving care in room [] Pre-surgical visit [] Trauma [] Long length of stay [] ICU visit [] Other: Relational/Emotional Strength [] Patient feels connected with others/family/visitors/staff [] Distress [] Loneliness/isolation [] Abandonment Spirituality of Patient [] Person of [place] [] Attends Spiritism of their [place] [] Believes in Prayer [] Reads Bible or Jainism materials [] There are Spiritual issues to be addressed Control Panel Builder Interventions [X] Prayer [X] Active listening [] Non-anxious presence [] Spiritual/emotional support [] Crisis/trauma care [] Spiritual counseling [] Bereavement support [] Provided bereavement packet [] Provided Bible/devotional materials [] Provided toy/stuffed animal, coloring book to patient or family member [] Provided Communion [] Anointing/[place] [] Salvation [] Completed spiritual assessment [] Other: Impact on Illness or Injury [] Angry [] Fearful [] Anxious [] Often cries [] Exhaustion [] Unable to work [] Unable to attend christianity [] Unable to walk/stand [] Unable to read [] Unable to drive [] Unable to eat/drink [] Unable to sleep [] Unable to be with family [] Patient intubated [] Other: Summary Time spent with patient 10 MIN
--- NOTE | 2023-05-18 11:12 | PM.DCS ---
Discharge Providers Date of Admission: 05/17/23 13:02 Date of Discharge: May 18, 2023 Attending Provider at Admission: Chandu Salas MD Attending Provider at Discharge: Chandu Salas MD Primary Care Provider: Jesus Bernardo MD Diagnoses at Discharge Discharge Diagnosis (1) Influenza A: Status: Acute (2) Bipolar disorder: Status: Acute Qualifiers: Active/Remission status: in remission of unspecified degree Qualified Code(s): F31.70 - Bipolar disorder, currently in remission, most recent episode unspecified (3) Hypothyroidism: Status: Acute (4) Nicotine addiction: Status: Acute (5) COPD exacerbation: Status: Acute Reason for Visit Reason for Visit: sob, cough Hospital Course Hospital Course Ericka is a 37-year-old white female that presents to the hospital with flulike illness. She was found to be hypoxic. Influenza A testing was positive, COVID testing negative. No specific infiltrate seen on x-ray. Has underlying tobacco use, and likely obesity hypoventilation with question of COPD. She was placed on steroids, Tamiflu, and nebulized treatments. With this her shortness of breath and wheezing improved significantly overnight. Following day she was asking to go home. I arranged for a home oxygen evaluation as she may very well have some underlying COPD or obesity hypoventilation. I discussed with her the need to stop smoking. She will finish up a short course of prednisone, Tamiflu. She will use her albuterol inhaler as needed and Flovent was added. She was able ask questions and agreed with the plan. She will follow-up with her primary care provider. Physical Exam Narrative: General exam no distress Neck is supple Cardiovascular regular rate and rhythm Lungs clear Abdomen is soft Extremities no cyanosis, edema Discharge Data Studies Completed and Pending Completed Studies During Hospitalization Category Date Time Status XR chest 1V portable [id number] Stat Exams 05/17/23 08:44 [place] [id number] Routine Ultrasound 05/17/23 13:13 Completed Laboratory Results WBC 7.13 10^3/uL (3.29-11.43) 05/18/23 02:38 RBC 4.67 10^6/uL (3.85-5.65) 05/18/23 02:38 Hgb 13.30 g/dL (11.27-16.99) 05/18/23 02:38 Hct 41.4 % (36-47) 05/18/23 02:38 MCV 88.7 fl (85-98) 05/18/23 02:38 MCH 28.5 pg (27-33) 05/18/23 02:38 MCHC 32.1 g/dL (30-55) 05/18/23 02:38 RDW 13.6 % (12.1-15.1) 05/18/23 02:38 Plt Count 370 10^3/cmm (157-399) 05/18/23 02:38 MPV 8.7 fL (7.4-10.4) 05/18/23 02:38 Neut % (Auto) 73.9 % 05/18/23 02:38 Lymph % (Auto) 16.1 % 05/18/23 02:38 Hopkins % (Auto) 9.5 % 05/18/23 02:38 Eos % (Auto) 0.0 % 05/18/23 02:38 Baso % (Auto) 0.1 % 05/18/23 02:38 Neut # (Auto) 5.26 10^3/uL (1.8-7.7) 05/18/23 02:38 Lymph # (Auto) 1.2 10^3/uL (0.8-4.8) 05/18/23 02:38 Hopkins # (Auto) 0.7 10^3/uL (0.2-0.9) 05/18/23 02:38 Eos # (Auto) 0.0 10^3/uL (0.0-0.8) 05/18/23 02:38 Baso # (Auto) 0.0 10^3/uL (0.0-0.1) 05/18/23 02:38 Nucleated RBC % (auto) 0 % 05/18/23 02:38 Nucleated RBCs # 0.0 /100WBC 05/18/23 02:38 Specimen Type Arterial 05/17/23 09:12 Sample Site Brachial, right 05/17/23 09:12 ABG pH 7.45 (7.35-7.45) 05/17/23 09:12 ABG pCO2 38.0 mmHg (35-45) 05/17/23 09:12 ABG pO2 64.8 mmHg (80.0-100.0) L 05/17/23 09:12 ABG PO2/FiO2 Ratio 0 05/17/23 09:12 ABG HCO3 26.3 mmol/L (22-26) H 05/17/23 09:12 ABG O2 Saturation 93.0 05/17/23 09:12 ABG Base Excess 2.3 mmol/L (-2.0-2.0) H 05/17/23 09:12 Walker Test N/a 05/17/23 09:12 A-a O2 Gradient 10.6 mmHg (5-10) H 05/17/23 09:12 Hematocrit 43.7 % (37-47) 05/17/23 09:12 Hgb O2 Saturation 91.2 % (95-100) L 05/17/23 09:12 Carboxyhemoglobin 1.6 %THgb (0.4-20.1) 05/17/23 09:12 Methemoglobin 0.2 % (0.4-1.5) L 05/17/23 09:12 Total Hemoglobin 14.2 g/dL (12-16) 05/17/23 09:12 Sodium 133.0 mmol/L (131-143) 05/17/23 09:12 Potassium 3.8 mmol/L (3.5-5.0) 05/17/23 09:12 Glucose 110.0 mg/dL (70-115) 05/17/23 09:12 Ionized Calcium 1.2 mmol/L (1.1-1.4) 05/17/23 09:12 O2 Delivery Device Nc 05/17/23 09:12 O2 Liters/Min 2.0 % 05/17/23 09:12 FiO2 28.0 % 05/17/23 09:12 Instructor Industrial Design ID Amh 05/17/23 09:12 Sodium 134 mmol/L (136-145) L 05/18/23 02:38 Potassium 4.1 mmol/L (3.5-5.1) 05/18/23 02:38 Chloride 97 mmol/L (98-107) L 05/18/23 02:38 Carbon Dioxide 26 mmol/L (22-29) 05/18/23 02:38 Anion Gap 15.1 (5-19) 05/18/23 02:38 BUN 15 mg/dL (6-20) 05/18/23 02:38 Creatinine 0.7 mg/dL (0.5-0.9) 05/18/23 02:38 GFR Calculation 94.7 mL/min (90-130) 05/18/23 02:38 Glucose 121 mg/dL (65-115) H 05/18/23 02:38 Calculated Osmolality 280 mOsm/kg (285-295) L 05/18/23 02:38 Calcium 9.9 mg/dL (8.5-10.5) 05/18/23 02:38 Magnesium 1.8 mg/dL (1.7-2.3) 05/18/23 02:38 Total Bilirubin 0.2 mg/dL (0.15-1.2) 05/18/23 02:38 AST 16 U/L (0-32) 05/18/23 02:38 ALT 17 U/L (0-33) 05/18/23 02:38 Alkaline Phosphatase 77 U/L (35-105) 05/18/23 02:38 Total Protein 7.6 g/dL (6.6-8.7) 05/18/23 02:38 Albumin 3.6 g/dL (3.5-5.2) 05/18/23 02:38 Globulin 4.0 g/dL (1.3-4.6) 05/18/23 02:38 TSH 1.37 uIU/mL (0.27-4.20) 05/17/23 09:07 Coronavirus 229E (PCR) Not detected (NOT DETECT) 05/17/23 09:18 Influenza A (H1) PCR Not detected (NOT DETECT) 05/17/23 11:19 Influ A (H1/09) PCR Detected (NOT DETECT) A 05/17/23 11:19 Influenza A (H3) PCR Not detected (NOT DETECT) 05/17/23 11:19 Influenza Type A Ag positive (Negative) H 05/17/23 08:55 Influenza Type A (PCR) Detected (NOT DETECT) A 05/17/23 11:19 Influenza Type B Ag negative (Negative) 05/17/23 08:55 Influenza Type B (PCR) Not detected (NOT DETECT) 05/17/23 11:19 SARS-CoV-2 (PCR) Not detected (NOT DETECT) 05/17/23 09:18 Vitals Last Vital Signs Temp 98.2 F 05/18/23 07:56 Pulse 109 H 05/18/23 08:57 Resp 18 05/18/23 08:00 BP 142/81 05/18/23 07:56 Pulse Ox 94 05/18/23 10:07 O2 Del Method Nasal Cannula 05/18/23 08:00 O2 Flow Rate 1 05/18/23 08:00 Discharge Plan Discharge Patient Disposition: Home Condition: Stable Prescriptions: New oseltamivir 75 mg Capsule 75 mg PO BID Qty: 8 0RF prednisone 20 mg Tablet 40 mg PO DAILY Qty: 8 0RF fluticasone propionate [Flovent HFA] 110 mcg/actuation HFA aerosol inhaler 1 inh inhalation BID Qty: 12 0RF Rx Instructions: administer with spacer Continued nystatin 100,000 unit/gram powder 1 applic topical BID PRN (Reason: Rash) lamotrigine [Lamictal] 100 mg tablet 100 mg PO DAILY Qty: 30 2RF lorazepam 0.5 mg tablet 0.25 mg PO BID Qty: 30 2RF ziprasidone HCl [Geodon] 80 mg capsule 80 mg PO BID Qty: 60 2RF famotidine 20 mg tablet 20 mg PO BID Cepacol Sore Throat (bernadine-men) 1 ea PO Q2H PRN (Reason: Cough) levothyroxine 75 mcg Tablet 75 mcg PO DAILY polyethylene glycol 3350 [Miralax] 17 gram Powder In Packet 17 g PO DAILY PRN (Reason: Constipation) Ventolin HFA 90 mcg/actuation HFA aerosol inhaler 2 inh INHALATION Q4H PRN (Reason: Shortness Of Breath) fluticasone propionate 50 mcg/actuation spray,suspension 1 spray INTRANASAL DAILY Tri-VyLibra Lo 0.18/0.215/0.25 mg-25 mcg tablet 1 tab PO DAILY Paxil 40 mg tablet 40 mg PO BEDTIME melatonin 10 mg capsule 10 mg PO BEDTIME Discontinued celecoxib 200 mg capsule 200 mg PO BID Discharge Orders: Discharge Order (Routine); Ordered 05/18/23 Ordered By: Chandu Salas Referrals: Jesus Bernardo MD [Primary Care Provider] - 4-7 days Discharge Diet: Usual diet Discharge Activity: Increase activity as tolerated Patient Instructions: Opioid Safety Activity Restrictions/Additional Instructions: No smoking Complete course of Tamiflu Complete course of prednisone Use your albuterol as needed every 4 hours Addition of Flovent twice daily Follow-up with primary care provider Home oxygen evaluation prior to discharge Discharge Attestations Time Spent in Discharge Care*: greater than 30 min Quality Metrics Clinical Quality Measures [ No reported AMI, CVA or VTE this stay] Coding Level of Care Code 79193 Total time (in minutes) for Discharge: 40 Diagnoses Influenza A J10.1 Bipolar affective disorder in remission F31.70 Active/Remission status: in remission of unspecified degree Hypothyroidism E03.9 Nicotine addiction F17.200 COPD exacerbation J44.1
--- NOTE | 2023-05-18 13:42 | PC.NURSE ---
Discussed discharge with primary caregiver. New medications, continued medications, discontinued medications and stopped medications were discussed. Dr. Salas notified to change Flovent inhaler to name brand and call a script in for nicotien patches. Primary caregiver verbalized understanding.
== END 2023-05-18 12:47 | disposition home or self-care (01) ==
LOC: ER 09:15 → MEDSURG 12:53
PROVIDERS: Admitting Provider Internal Medicine; Emergency Provider Family Medicine; PCP Family Medicine; Visit Provider Internal Medicine
DX: J10.1 Influenza due to other identified influenza virus with other respiratory manifestations (principal); F31.70 Bipolar disorder, currently in remission, most recent episode unspecified; E03.9 Hypothyroidism, unspecified; F17.210 Nicotine dependence, cigarettes, uncomplicated; J44.1 Chronic obstructive pulmonary disease with (acute) exacerbation; F31.9 Bipolar disorder, unspecified; E78.5 Hyperlipidemia, unspecified; G47.33 Obstructive sleep apnea (adult) (pediatric)
CPT/HCPCS: 36415; 36600; 71045; 80051; 80053; 82330; 82805; 83735; 84443; 85025; 87631; 87635; 87804; 93005; 93970; 94640; 94760; 96372; 99285; G0378; J1100; J1650; J7512; J7626

== ENCOUNTER 2024-06-29 18:06 | Inpatient (IN) | payer MEDICAID, SELFPAY ==
[2024-06-29 18:13] VITALS: BP 119/69; PULSE 97; RESP 16; TEMP 36.9; O2SAT 95; BMI 50.8
--- NOTE | 2024-06-29 19:04 | W.ED.PSYCHS ---
HPI - Psych General: Chief Complaint: Psychiatric Symptoms Stated Complaint: SI Time Seen by Provider: 06/29/24 18:20 Source: patient and other (Staff member from [facility]) Mode of arrival: ambulatory Limitations: no limitations History of Present Illness: Patient is a 38-year-old female with history of learning disability and intellectual disabilities, bipolar 2 disorder, generalized anxiety disorder, and further psychiatric care who is brought in by staff from [facility] facility due to self-harm thoughts since last night. Patient reports history of similar thoughts, with subsequent suicidal ideations. Patient states she has had significant amount of stress recently due to staff members wanting me to do things that I cannot do. Staff member in the room states that patient recently lost her mom and this is caused a worsening of her thoughts. Patient stating she is not feeling suicidal at this time, is currently not feeling homicidal. Stepmother states that patient has been noticed to be talking to family members, and while she has a history of this it has gotten worse recently. No alcohol or drug use reported. Patient does not report any specific plan of how she would hurt herself or suicide. She thinks that she needs to be seen in an inpatient setting, as she sees [facility] regularly and is still feeling this way. No recent changes to her medications. No other symptoms to report at this time. MD complaint: feels depressed and other (self harm thoughts) Onset (ago): day(s) Duration: constant History of same: Yes Relieving factors: none Exacerbating factors: other (Recent stress) Context: significant life stressor Associated psychiatric symptoms: depression and visual hallucinations Associated symptoms: Reports visual hallucinations (Reported by staff member) and depression; Deny auditory hallucinations, homicidal ideation or suicidal ideation Treatments prior to arrival: none If self harm: admits thoughts of self harm Related Data Home Medications ?Medication ?Instructions ?Recorded ?Confirmed famotidine 20 mg tablet 20 mg PO BID 06/08/19 03/19/24 levothyroxine 75 mcg tablet 75 mcg PO DAILY 06/08/19 03/19/24 polyethylene glycol 3350 17 gram 17 g PO DAILY PRN Constipation 06/08/19 03/19/24 oral powder packet (Miralax) albuterol sulfate 90 mcg/actuation 2 inh inhalation Q4H PRN Shortness 05/17/23 03/19/24 aerosol inhaler (Ventolin HFA) Of Breath fluticasone propionate 50 1 spray intranasal DAILY 05/17/23 03/19/24 mcg/actuation nasal spray,suspension norgestimate 0.18 mg/0.215 mg/0.25 1 tab PO DAILY 05/17/23 03/19/24 mg-ethinyl estradiol 25 mcg tablet (Tri-VyLibra Lo) celecoxib 200 mg capsule 200 mg PO TID PRN 10/31/23 03/19/24 Previous Rx's ?Medication ?Instructions ?Recorded fluticasone propionate 100 1 inh inhalation BID #60 ea 05/18/23 mcg/actuation blister powder for inhalation (Flovent Diskus) lamotrigine 100 mg tablet 100 mg PO DAILY #30 tabs 10/31/23 (Lamictal) melatonin 5 mg capsule 10 mg (2 x 5 mg) PO .HS #60 caps 10/31/23 paroxetine HCl 40 mg tablet (Paxil) 40 mg PO BEDTIME #30 tabs 10/31/23 ziprasidone HCl 80 mg capsule 80 mg PO BID #60 caps 10/31/23 (Geodon) Allergies Allergy/AdvReac Type Severity Reaction Status Date / Time hydrochlorothiazide Allergy Unknown unknown Verified 03/19/24 09:49 codeine Allergy ALGY-Hives Verified 03/19/24 09:49 Review of Systems General: Reports: 10 or more systems reviewed and unremarkable except in HPI and below Const: Denies: fever(s), chills or fatigue Eyes: Denies: change in vision ENMT: Denies: throat pain, ear or mastoid pain or nasal discharge Card: Denies: chest pain, palpitations, swelling of feet/ankles or lightheadedness Resp: Denies: dyspnea, productive cough or wheezing GI: Denies: abdominal pain, nausea, vomiting, diarrhea or constipation Musc: Denies: neck pain, back pain or joint pain Skin/Breast: Denies: rash Neuro: Denies: headache(s), numbness in extremities or weakness in extremities Psych: Reports: anxiety, depression and visual hallucinations (Reported by staff member); Denies: auditory hallucinations, tactile hallucinations, suicidal ideation or homicidal ideation PFSH ED PFSH: Medical History Nicotine dependence, cigarettes, uncomplicated On combination antipsychotic drug therapy Generalized anxiety disorder Psychiatric care Learning disability Mild intellectual disabilities Bipolar II disorder SOB (shortness of breath) on exertion High blood cholesterol Sleep apnea Abnormal EKG Intermittent explosive disorder Family History Other Diabetes Lung disease Stroke Social History Smoking and tobacco/nicotine status: current some day tobacco/nicotine user cigarettes Packs smoked per day: 0.5 Years cigarettes smoked: 3 Quit status (tobacco/nicotine): not considering quitting Second hand smoke exposure: No Alcohol intake: never Substance/Drug Use: never Physical Exam Const: COMMON NORMALS: no acute distress, patient oriented x3 and no limitations GENERAL APPEARANCE: cooperative and anxious ORIENTATION/CONSCIOUSNESS: Yes awake, Yes oriented to person, Yes oriented to place and Yes oriented to time HENMT: COMMON NORMALS: normocephalic, atraumatic and hearing grossly normal bilaterally HEAD & SCALP: normocephalic and atraumatic Eye: COMMON NORMALS: Equal, round and reactive pupils present, EOMs intact bilaterally and conjunctivae normal CONJUNCTIVA: Yes conjunctivae normal PUPIL: Yes Equal, round and reactive pupils present Neck/C-Spine: COMMON NORMALS: full ROM, supple and no JVD Resp: COMMON NORMALS: normal respiratory effort, No retractions, No use of accessory muscles and clear to auscultation bilaterally AUSCULTATION: clear to auscultation bilaterally Cardio: COMMON NORMALS: no JVD, regular rate, regular rhythm, No clicks present (Cardio), No murmurs present (Cardio) and No rub (Cardio) RATE: regular rate RHYTHM: regular rhythm GI: COMMON NORMALS: Normal to inspection, nondistended, normoactive bowel sounds present, Soft to palpation and non-tender AUSCULTATION: Yes normoactive bowel sounds PALPATION: Yes Soft to palpation RECTAL EXAM: deferred Extremity: COMMON NORMALS: normal to inspection, full ROM and capillary refill normal Neuro: COMMON NORMALS: patient oriented x3, moves all extremities, no focal motor deficits and no sensory deficits noted SENSORIUM/ORIENTATION: Yes oriented to person, Yes oriented to place and Yes oriented to time Psych: COMMON NORMALS: speech normal APPEARANCE: Yes grossly normal ATTITUDE: Yes calm ACTIVITY/MOTOR BEHAVIOR: Yes appropriate eye contact SPEECH: Yes normal speech MOOD & AFFECT: Yes anxious and Yes tearful THOUGHT CONTENT: No Suicidality present, No Homicidality present and No Hallucination(s) present Skin: COMMON NORMALS: no rashes or lesions noted GENERAL SKIN EXAM: no rashes or lesions noted Course Vital Signs: Vital signs: Vital Signs Temperature 98.4 F 06/29/24 18:13 Pulse Rate 97 06/29/24 18:13 Respiratory Rate 16 06/29/24 18:13 Blood Pressure 119/69 06/29/24 18:13 Pulse Oximetry 95 06/29/24 18:13 Oxygen Delivery Me thod Room Air 06/29/24 18:13 MDM - Psych Medical Decision Making Patient cleared medically and excepted to the neuropsychiatric unit by Dr. Burgos. Lab Data 06/29/24 19:55 06/29/24 19:55 Laboratory Results WBC 12.36 10^3/uL (3.29-11.43) H 06/29/24 19:55 RBC 4.65 10^6/uL (3.85-5.65) 06/29/24 19:55 Hgb 13.70 g/dL (11.27-16.99) 06/29/24 19:55 Hct 41.5 % (36-47) 06/29/24 19:55 MCV 89.2 fl (85-98) 06/29/24 19:55 MCH 29.5 pg (27-33) 06/29/24 19:55 MCHC 33.0 g/dL (30-55) 06/29/24 19:55 RDW 12.8 % (12.1-15.1) 06/29/24 19:55 Plt Count 329 10^3/cmm (157-399) 06/29/24 19:55 MPV 9.1 fL (7.4-10.4) 06/29/24 19:55 Neut % (Auto) 53.4 % 06/29/24 19:55 Lymph % (Auto) 39.2 % 06/29/24 19:55 [place] % (Auto) 5.7 % 06/29/24 19:55 Eos % (Auto) 1.1 % 06/29/24 19:55 Baso % (Auto) 0.4 % 06/29/24 19:55 Neut # (Auto) 6.60 10^3/uL (1.8-7.7) 06/29/24 19:55 Lymph # (Auto) 4.8 10^3/uL (0.8-4.8) 06/29/24 19:55 [place] # (Auto) 0.7 10^3/uL (0.2-0.9) 06/29/24 19:55 Eos # (Auto) 0.1 10^3/uL (0.0-0.8) 06/29/24 19:55 Baso # (Auto) 0.1 10^3/uL (0.0-0.1) 06/29/24 19:55 Nucleated RBC % (auto) 0 % 06/29/24 19:55 Nucleated RBCs # 0.0 /100WBC 06/29/24 19:55 Sodium 136 mmol/L (136-145) 06/29/24 19:55 Potassium 3.8 mmol/L (3.5-5.1) 06/29/24 19:55 Chloride 100 mmol/L (98-107) 06/29/24 19:55 Carbon Dioxide 25 mmol/L (22-29) 06/29/24 19:55 Anion Gap 14.8 (5-19) 06/29/24 19:55 BUN 14 mg/dL (6-20) 06/29/24 19:55 Creatinine 0.8 mg/dL (0.5-0.9) 06/29/24 19:55 GFR Calculation 80.7 mL/min (90-130) L 06/29/24 19:55 Glucose 90 mg/dL (65-115) 06/29/24 19:55 Calculated Osmolality 282 mOsm/kg (285-295) L 06/29/24 19:55 Calcium 9.0 mg/dL (8.5-10.5) 06/29/24 19:55 Total Bilirubin 0.2 mg/dL (0.15-1.2) 06/29/24 19:55 AST 9 U/L (0-32) 06/29/24 19:55 ALT 9 U/L (0-33) 06/29/24 19:55 Alkaline Phosphatase 73 U/L (35-105) 06/29/24 19:55 Total Protein 6.6 g/dL (6.6-8.7) 06/29/24 19:55 Albumin 3.6 g/dL (3.5-5.2) 06/29/24 19:55 Globulin 3.0 g/dL (1.3-4.6) 06/29/24 19:55 Salicylates < 0.3 mg/dL (3-10) L 06/29/24 19:55 Acetaminophen < 5.0 ug/mL (10-30) L 06/29/24 19:55 Ethyl Alcohol < 10 mg/dL (0-10) 06/29/24 19:55 No radiology studies performed this visit Discharge Plan Discharge Patient Disposition: Admitted As Inpatient Clinical Impression: Bipolar disorder Qualifiers: Active/Remission status: in remission of unspecified degree Qualified Code(s): F31.70 - Bipolar disorder, currently in remission, most recent episode unspecified Depression Qualifiers: Depression Type: unspecified Qualified Code(s): F32.A - Depression, unspecified Condition: Stable Coding Level of Care Code ED [employer] for [employer]
[2024-06-29] MEDS: nicotine 21 mg Patch 1 PATCH TRANSDERMA (19:56)
[2024-06-29 20:20] LABS: Basophils # 0.1 10^3/uL (0.0-0.1); Basophils % 0.4 %; Eosinophils # 0.1 10^3/uL (0.0-0.8); Eosinophils % 1.1 %; Hematocrit 41.5 % (36-47); Lymphocytes # 4.8 10^3/uL (0.8-4.8); Lymphocytes % 39.2 %; Mean Corpuscular Hemoglobin 29.5 pg (27-33); Mean Corpuscular Volume 89.2 fl (85-98); Mean Platelet Volume 9.1 fL (7.4-10.4); Monocytes # 0.7 10^3/uL (0.2-0.9); Monocytes % 5.7 %; Neutrophils % 53.4 %; Nucleated Red Blood Cells % 0 %; Platelet Count 329 10^3/cmm (157-399); Red Blood Count 4.65 10^6/uL (3.85-5.65); Red Cell Distribution Width 12.8 % (12.1-15.1); White Blood Count 12.36 10^3/uL (3.29-11.43)
[2024-06-29 21:38] LABS: Acetaminophen < 5.0 ug/mL (10-30); Alanine Aminotransferase 9 U/L (0-33); Albumin Level 3.6 g/dL (3.5-5.2); Alcohol Level < 10 mg/dL (0-10); Alkaline Phosphatase 73 U/L (35-105); Anion Gap 14.8 (5-19); Aspartate Amino Transferase 9 U/L (0-32); Blood Urea Nitrogen 14 mg/dL (6-20); Carbon Dioxide 25 mmol/L (22-29); Chloride 100 mmol/L (98-107); Creatinine Clr Calc Pharmacy 131.5153; Glomerular Filtration Rate 80.7 mL/min (90-130); Glucose 90 mg/dL (65-115); Osmolality Calculated 282 mOsm/kg (285-295); Potassium 3.8 mmol/L (3.5-5.1); Salicylate < 0.3 mg/dL (3-10); Sodium 136 mmol/L (136-145); Total Bilirubin 0.2 mg/dL (0.15-1.2); Total Protein 6.6 g/dL (6.6-8.7)
[2024-06-29 23:15] VITALS: RESP 18
--- NOTE | 2024-06-29 23:23 | PC.ADMIT ---
2700 [facility] Admission Note: The patient,Ericka Allen,38 y/o, was given written information regarding hospital policies, unit procedures and contact persons. Patient's smoking status: current some day smoker. Vital Signs - 8 hr 06/29/24 18:13 Temperature 98.4 F Pulse Rate 97 Respiratory Rate 16 Blood Pressure 119/69 Pulse Oximetry 95 Oxygen Delivery Method Room Air
--- NOTE | 2024-06-29 23:24 | PC.ADMIT ---
2700 [facility] Admission Note: The patient,Erikca Allen,38 y/o, was given written information regarding hospital policies, unit procedures and contact persons. Patient's smoking status: current some day smoker. Vital Signs - 8 hr 06/29/24 18:13 Temperature 98.4 F Pulse Rate 97 Respiratory Rate 16 Blood Pressure 119/69 Pulse Oximetry 95 Oxygen Delivery Method Room Air
[2024-06-29 23:28] VITALS: BP 111/80; PULSE 106; RESP 18; TEMP 37; O2SAT 98
[2024-06-29 23:33] LABS: Bilirubin Urine Negative (Negative); Blood Urine Negative (Negative); Glucose Urine UA Negative (Normal); Ketones Urine Negative (Negative); Leukocyte Esterase Urine Trace (Negative); Nitrate Urine Negative (Negative); Protein Urine Negative (Negative); Specific Gravity, Urine 1.015 (1.005-1.030); Urine Appearance Clear (CLEAR); Urine Color Yellow (Yellow); Urobilinogen Urine 0.2 mg/dL (Negative)
[2024-06-29 23:42] LABS: Amphetamines Screen Urine Negative (Negative); Barbiturates Screen Urine Negative (Negative); Benzodiazepines Screen Urine Negative (Negative); Cocaine Screen Urine Negative (Negative); Opiate Screen Urine Negative (Negative); PCP Screen Urine Negative (Negative); THC Screen Urine Negative (Negative)
[2024-06-29 23:44] LABS: Add Urine Microscopic? YES; Bacteria Urine TRACE /hpf; RBC Urine 0-4 /hpf (0-2); Squamous Epithelial Cell Urine 15-25 /hpf (0-5); WBC Urine 0-4 /hpf (0-5)
--- NOTE | 2024-06-29 23:45 | PC.NURSE ---
Called patients Guardian (Carol Correia) left voice mail for her to return call. Patient stated that she contacted her earlier to let her know she was being admitted.
[2024-06-30] MEDS: levothyroxine 75 mcg Tablet PO (05:57)
[2024-06-30 06:00] VITALS: BP 125/77; PULSE 79; RESP 18; TEMP 36.4; O2SAT 99
[2024-06-30] MEDS: lamoTRIgine 100 mg Tablet PO (09:07)
[2024-06-30] MEDS: ziprasidone hcl 40 mg Capsule 80 MG PO ×2 (09:07→18:20)
[2024-06-30] MEDS: loratadine 10 mg Tablet PO (09:07)
[2024-06-30] MEDS: fluticasone nasal spray 16gm Btl 1 SPRAY INTRANASAL (09:07)
[2024-06-30] MEDS: CELEcoxib 200 mg Capsule PO ×2 (09:07→18:20)
[2024-06-30] MEDS: famotidine 20 mg Tablet PO ×2 (09:07→18:20)
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
--- NOTE | 2024-06-30 12:57 | PC.NURSE ---
This nurse attempted to contact OT in regards to eating tools that patient uses when she eats at her [facility] to avoid dumping/throwing her food. No answer, not able to leave a vm.
[2024-06-30 14:00] VITALS: BP 118/74; PULSE 92; RESP 16; TEMP 36.6; O2SAT 98
[2024-06-30] MEDS: PARoxetine 20 mg Tablet 40 MG PO (20:58)
[2024-06-30 21:01] VITALS: BP 115/66; PULSE 91; RESP 18; TEMP 36.9; O2SAT 96
[2024-07-01 05:58] VITALS: BMI 51.4
[2024-07-01 06:00] VITALS: RESP 18
--- NOTE | 2024-07-01 06:20 | PC.NURSE ---
Patient refused vitals nurse notified.
[2024-07-01] MEDS: levothyroxine 75 mcg Tablet PO (06:45)
[2024-07-01] MEDS: budesonide 0.5 mg/2 mL Neb INHALATION (08:37)
[2024-07-01 08:38] VITALS: PULSE 86; RESP 18; O2SAT 98
[2024-07-01] MEDS: albuterol 2.5 mg/3 mL Neb INHALATION ×3 (08:38→13:35)
[2024-07-01] MEDS: famotidine 20 mg Tablet PO ×2 (09:11→17:53)
[2024-07-01] MEDS: loratadine 10 mg Tablet PO (09:11)
[2024-07-01] MEDS: CELEcoxib 200 mg Capsule PO ×2 (09:11→17:53)
[2024-07-01] MEDS: ziprasidone hcl 40 mg Capsule 80 MG PO ×2 (09:11→17:53)
[2024-07-01] MEDS: fluticasone nasal spray 16gm Btl 1 SPRAY INTRANASAL (09:11)
[2024-07-01] MEDS: lamoTRIgine 100 mg Tablet PO (09:11)
--- NOTE | 2024-07-01 11:26 | P.NPUPN_ITS ---
Subjective NPU 2 Subjective: Patient presented today reporting that she is feeling very overwhelmed. Today she was reporting that it is a specific worker named Ledy or Rena that is part of her challenge. She reports that she cannot even talk around that person because there is such a problematic reality. She reports there was someone there before that worked out well but that person left and now things have been much worse. We discussed the fact that is very difficult to switch ISL's that quickly and that we need to work with the social work team to figure out what we can do to help lessen the challenges there so that she can return home. She denied any side effects to the medication and we talked about the possibility of increasing her Paxil. Mental Status Exam 2 MSE Comments: This is a morbidly obese white female with in hospital scrubs with limited grooming and eye contact. There is a walker sitting in front of her bed. No abnormal movements except for mild psychomotor agitation. Cooperative with exam in moderate distress. Speech was slightly decreased rate and volume. Mood described as depressed and anxious, affect congruent and quite labile/tearful. Thought process linear and mostly organized. Thought content: Patient denied any suicidal or homicidal ideation but reports a passive wish and not liking being at her facility, there were no delusions reported noted, she denied any auditory or visual hallucinations. Attention and concentration were intact and memory appeared mostly reliable but none were formally tested. She is alert and oriented ?3. Insight and judgment are limited. Impulse control is limited. Intellectual ability is impaired. Vitals/I&O/Wt Last Vital Signs Temp 98.5 F 06/30/24 21:01 Pulse 86 07/01/24 08:38 Resp 18 07/01/24 08:38 BP 115/66 06/30/24 21:01 Pulse Ox 98 07/01/24 08:38 O2 Del Method Room Air 07/01/24 08:38 Weight last 48 hrs Weight 135.851 kg Weight 134.263 kg Data NPU 06/29/24 19:55 06/29/24 19:55 A&P Assessment and plan (1) Intermittent explosive disorder: (2) Intellectual disability: Plan This is a 38-year-old white female with a long history of intellectual disability with behavioral disturbances sometimes attributed to bipolar disorder but likely related to impulse control issues known through past episodes that have led to inpatient and outpatient services who presents after several years once again after an a behavioral disturbance secondary to reporting that things are not going well at her [facility] and her considering whether she may need to move somewhere else. 1. Continue current medication. Consider increasing antidepressant and/or introducing Wellbutrin XL after consultation with outpatient provider. 2. Encourage individual, group and milieu therapy. 3. Continue every 15 minute checks for safety. 4. Work on patient returning to previous residential situation with appropriate. Evaluate to determine whether this represents a decompensation versus intermittent explosive interactions. PDMP PDMP Reviewed: Not Reviewed Involuntary Hold Information 2 96 Hour Hold: 96 Hour Involuntary Admission: No Attestations NPU 2 Medical Necessity Statement*: Inpatient hospitalization is medically necessary and the clinically appropriate intervention at this time. Likely length of stay an additional 1-4 days. Coding Level of Care Code Acute Code for [facility] Fwd Diagnoses Intermittent explosive disorder F63.81 Intellectual disability F79
[2024-07-01 13:35] VITALS: PULSE 96; RESP 18; O2SAT 98
[2024-07-01] MEDS: OLANZapine 5 mg ODT PO (13:48)
[2024-07-01 14:00] VITALS: BP 94/59; PULSE 101; RESP 18; TEMP 37; O2SAT 96
[2024-07-01] MEDS: nicotine 21 mg Patch 1 PATCH TRANSDERMA (14:44)
[2024-07-01] MEDS: PARoxetine 20 mg Tablet 40 MG PO (20:00)
[2024-07-01 21:09] VITALS: BP 121/65; PULSE 91; RESP 16; TEMP 36.8; O2SAT 95
[2024-07-02 06:00] VITALS: BP 122/74; PULSE 76; RESP 16; TEMP 37.2; O2SAT 96
[2024-07-02] MEDS: levothyroxine 75 mcg Tablet PO (06:28)
[2024-07-02] MEDS: lamoTRIgine 100 mg Tablet PO (09:25)
[2024-07-02] MEDS: ziprasidone hcl 40 mg Capsule 80 MG PO (09:25)
[2024-07-02] MEDS: CELEcoxib 200 mg Capsule PO (09:25)
[2024-07-02] MEDS: fluticasone nasal spray 16gm Btl 1 SPRAY INTRANASAL (09:25)
[2024-07-02] MEDS: loratadine 10 mg Tablet PO (09:25)
[2024-07-02] MEDS: famotidine 20 mg Tablet PO (09:25)
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
--- NOTE | 2024-07-02 13:06 | W.PM.NPUDCS ---
Diagnoses at Discharge Discharge Diagnosis (1) Intermittent explosive disorder: Status: Inactive (2) Intellectual disability: Status: Acute Reason for Visit Reason for Visit: SI Involuntary Hold Information 96 Hour Hold: 96 Hour Involuntary Admission: No Mental Status Exam MSE Comments: This is a morbidly obese white female with in hospital scrubs with limited grooming and eye contact. There is a walker sitting in front of her bed. No abnormal movements except for mild psychomotor agitation. Cooperative with exam in moderate distress. Speech was slightly decreased rate and volume. Mood described as depressed and anxious, affect congruent and quite labile/tearful. Thought process linear and mostly organized. Thought content: Patient denied any suicidal or homicidal ideation but reports a passive wish and not liking being at her facility, there were no delusions reported noted, she denied any auditory or visual hallucinations. Attention and concentration were intact and memory appeared mostly reliable but none were formally tested. She is alert and oriented ?3. Insight and judgment are limited. Impulse control is limited. Intellectual ability is impaired. Discharge Data Studies Completed and Pending: Laboratory Results WBC 12.36 10^3/uL (3. 29-11.43) H 06/29/24 19:55 RBC 4.65 10^6/uL (3.8 5-5.65) 06/29/24 19:55 Hgb 13.70 g/dL (11.27 -16.99) 06/29/24 19:55 Hct 41.5 % (36-47) 06/29/24 19:55 MCV 89.2 fl (85-98) 06/29/24 19:55 MCH 29.5 pg (27-33) 06/29/24 19:55 MCHC 33.0 g/dL (30-55) 06/29/24 19:55 RDW 12.8 % (12.1-15.1 ) 06/29/24 19:55 Plt Count 329 10^3/cmm (157 -399) 06/29/24 19:55 MPV 9.1 fL (7.4-10.4) 06/29/24 19:55 Neut % (Auto) 53.4 % 06/29/24 19:55 Lymph % (Auto) 39.2 % 06/29/24 19:55 [place] % (Auto) 5.7 % 06/29/24 19:55 Eos % (Auto) 1.1 % 06/29/24 19:55 Baso % (Auto) 0.4 % 06/29/24 19:55 Neut # (Auto) 6.60 10^3/uL (1.8 -7.7) 06/29/24 19:55 Lymph # (Auto) 4.8 10^3/uL (0.8- 4.8) 06/29/24 19:55 [place] # (Auto) 0.7 10^3/uL (0.2- 0.9) 06/29/24 19:55 Eos # (Auto) 0.1 10^3/uL (0.0- 0.8) 06/29/24 19:55 Baso # (Auto) 0.1 10^3/uL (0.0- 0.1) 06/29/24 19:55 Nucleated RBC % (a uto) 0 % 06/29/24 19:55 Nucleated RBCs # 0.0 /100WBC 06/29/24 19:55 Sodium 136 mmol/L (136-1 45) 06/29/24 19:55 Potassium 3.8 mmol/L (3.5-5 .1) 06/29/24 19:55 Chloride 100 mmol/L (98-10 7) 06/29/24 19:55 Carbon Dioxide 25 mmol/L (22-29) 06/29/24 19:55 Anion Gap 14.8 (5-19) 06/29/24 19:55 BUN 14 mg/dL (6-20) 06/29/24 19:55 Creatinine 0.8 mg/dL (0.5-0. 9) 06/29/24 19:55 GFR Calculation 80.7 mL/min (90-1 30) L 06/29/24 19:55 Glucose 90 mg/dL (65-115) 06/29/24 19:55 Calculated Osmolal ity 282 mOsm/kg (285- 295) L 06/29/24 19:55 Calcium 9.0 mg/dL (8.5-10 .5) 06/29/24 19:55 Total Bilirubin 0.2 mg/dL (0.15-1 .2) 06/29/24 19:55 AST 9 U/L (0-32) 06/29/24 19:55 ALT 9 U/L (0-33) 06/29/24 19:55 Alkaline Phosphata se 73 U/L (35-105) 06/29/24 19:55 Total Protein 6.6 g/dL (6.6-8.7 ) 06/29/24 19:55 Albumin 3.6 g/dL (3.5-5.2 ) 06/29/24 19:55 Globulin 3.0 g/dL (1.3-4.6 ) 06/29/24 19:55 Urine Color Yellow (Yellow) 06/29/24 23:01 Urine Appearance Clear (CLEAR) 06/29/24 23: Urine pH 6.0 (5-7) 06/29/24 23:01 Ur Specific Gravit y 1.015 (1.005-1.0 30) 06/29/24 23: Urine Protein Negative (Negati ve) 06/29/24 23:01 Urine Glucose (UA) Negative (Normal ) 06/29/24 23:01 Urine Ketones Negative (Negati ve) 06/29/24 23:01 Urine Blood Negative (Negati ve) 06/29/24 23:01 Urine Nitrate Negative (Negati ve) 06/29/24 23:01 Urine Bilirubin Negative (Negati ve) 06/29/24 23:01 Urine Urobilinogen 0.2 mg/dL (Negati ve) 06/29/24 23:01 Ur Leukocyte Lashae ase Trace (Negative) A 06/29/24 23:01 Urine RBC 0-4 /hpf (0-2) H 06/29/24 23:01 Urine WBC 0-4 /hpf (0-5) H 06/29/24 23:01 Ur Squamous Epith Cells 15-25 /hpf (0-5) H 06/29/24 23:01 Amorphous Sediment Not Reportable 06/29/24 23:01 Urine Bacteria Trace /hpf (NONE) 06/29/24 23: Salicylates < 0.3 mg/dL (3-10 ) L 06/29/24 19:55 Urine Opiates Scre en Negative ng/mL (N egative) 06/29/24 23: Acetaminophen < 5.0 ug/mL (10-3 0) L 06/29/24 19:55 Ur Barbiturates Sc reen Negative ng/mL (N egative) 06/29/24 23:01 Ur Phencyclidine S crn Negative ng/mL (N egative) 06/29/24 23:01 Ur Amphetamines Sc reen Negative ng/mL (N egative) 06/29/24 23:01 U Benzodiazepines Scrn Negative ng/mL (N egative) 06/29/24 23:01 Urine Cocaine Scre en Negative ng/mL (N egative) 06/29/24 23:01 U Marijuana (THC) Screen Negative ng/mL (N egative) 06/29/24 23:01 Ethyl Alcohol < 10 mg/dL (0-10) 06/29/24 19:55 Vitals: Last Vital Signs Temp 98.9 F 07/02/24 06:00 Pulse 76 07/02/24 06:00 Resp 16 07/02/24 06:00 BP 122/74 07/02/24 06:00 Pulse Ox 96 07/02/24 06:00 O2 Del Method Room Air 07/02/24 06:00 Discharge Plan Discharge Patient Disposition: Home Condition: Stable Prescriptions: New paroxetine HCl [Paxil] 10 mg tablet 10 mg PO DAILY 30 Days Qty: 30 1RF Rx Instructions: Take with 40 mg tablet for 50 mg total. Continued lamotrigine [Lamictal] 100 mg tablet 100 mg PO DAILY Qty: 30 11RF Paxil 40 mg tablet 40 mg PO BEDTIME Qty: 30 11RF ziprasidone HCl [Geodon] 80 mg capsule 80 mg PO BID Qty: 60 11RF melatonin 5 mg capsule 10 mg PO .HS Qty: 60 11RF celecoxib 200 mg capsule 200 mg PO BID famotidine 20 mg tablet 20 mg PO BID levothyroxine 75 mcg Tablet 75 mcg PO DAILY polyethylene glycol 3350 [Miralax] 17 gram Powder In Packet 17 g PO DAILY PRN (Reason: Constipation) fluticasone propion-salmeterol [Advair Diskus] 250-50 mcg/dose blister with device 1 inh INHALATION BID loratadine 10 mg tablet 10 mg PO DAILY albuterol sulfate [Ventolin HFA] 90 mcg/actuation HFA aerosol inhaler 2 inh INHALATION Q4H PRN (Reason: Shortness Of Breath) fluticasone propionate 50 mcg/actuation spray,suspension 1 spray INTRANASAL DAILY norgestimate-ethinyl estradiol [Tri-VyLibra Lo] 0.18/0.215/0.25 mg-25 mcg tablet 1 tab PO DAILY Discharge Orders: Discharge Order (Routine); Ordered 07/02/24 Ordered By: Chriss Burgos Referrals: Jesus Bernardo MD [Primary Care Provider] - Discharge Diet: Regular Discharge Activity: Resume usual activity Patient Instructions: Opioid Safety, Pain Management Discharge Attestations NPU Time Spent in Discharge Care*: less than 30 min Specific Discharge Activities: Specific discharge activities: educating patient, discussing with leather case finisher/social workers/dc planners, documenting/other paperwork and evaluating patient/reviewing data Coding Level of Care Code Acute Code for Chg Fwd Diagnoses Intermittent explosive disorder F63.81 Intellectual disability F79
[2024-07-02 13:31] VITALS: BP 122/74; PULSE 76; RESP 16; TEMP 37.2; O2SAT 96
[2024-07-02 14:00] VITALS: BP 108/75; PULSE 113; RESP 16; TEMP 37.3; O2SAT 94
[2024-07-02] MEDS: PARoxetine 20 mg Tablet 10 MG PO (14:09)
== END 2024-07-02 15:10 | disposition home or self-care (01) | DRG 883 ==
LOC: ER 22:36 → NP 22:53
PROVIDERS: Admitting Provider Psychiatry & Neurology Psychiatry; Emergency Provider Physician Assistant; PCP Family Medicine; Visit Provider Psychiatry & Neurology Psychiatry
DX: F63.81 Intermittent explosive disorder (principal); Z68.43 Body mass index [BMI] 50.0-59.9, adult; F79 Unspecified intellectual disabilities; E66.01 Morbid (severe) obesity due to excess calories; F17.210 Nicotine dependence, cigarettes, uncomplicated; G47.30 Sleep apnea, unspecified; F41.9 Anxiety disorder, unspecified; F31.9 Bipolar disorder, unspecified; F63.9 Impulse disorder, unspecified
CPT/HCPCS: 36415; 80053; 80306; 80307; 81001; 85025; 94640; 97150; 97165; 99285; J7613; J7626

== ENCOUNTER → 2024-09-18 13:58 | Outpatient (BNVA) | payer OTHER, SELFPAY | PROVIDERS: PCP Family Medicine; Visit Provider Psychiatry & Neurology Psychiatry | DX: F31.81 Bipolar II disorder (principal); Z79.899 Other long term (current) drug therapy | CPT/HCPCS: 83036 ==